=== PATIENT | male | born 2005 | race Caucasian/White ===

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

== ENCOUNTER 2025-05-13 09:36 | Outpatient (CLI) | payer BC, SELFPAY ==
--- OUTSIDE RECORDS SUMMARY | 2025-05-13 09:41 | XMS_ITS | Clinical Summary ---
Author Organization Healthcare Address [address] 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 14 tablet 02/10/2022 Active Social History Tobacco Use Types Packs/Day Years Used Date Smoking Tobacco: Passive Smo ke Exposure - Never Smoker Sex and Gender Information Value Date Recorded Sex Assigned at Not on file Legal Sex Male 6:08 PM EDT Gender Identity Not on file Sexual Orientation Not on file Last Filed Vital Signs Vital Sign Reading Time Taken Comments Blood Pressure 137/63 02/10/2022 8:00 AM EDT Pulse 95 02/10/2022 6:24 AM EDT Temperature 37.4 C (99.4 F) 02/10/2022 6:24 AM EDT Respiratory Rate 20 02/10/2022 6:24 AM EDT Oxygen Saturation 97% 02/10/2022 8:00 AM EDT Inhaled Oxygen Concentration - - Weight 94.8 kg (208 lb 15.9 oz) 07/18/2016 8:34 AM EST Height 162.6 cm (5' 4 ) 07/18/2016 8:34 AM EST Body Mass Index 35.87 07/18/2016 8:34 AM EST Plan of Treatment Health Maintenance Due Date Last Done Comments [facility]-Depression Screening 2004 [facility]-Infant/Child/Adol SDOH Screenings 2004 HPV Vaccines (1 - Male 3-dose series) 01/27/2019 [facility]- SDOH Screenings 01/27/2022 [facility]-Adult SDOH Screenings 01/27/2022 [id number] Vaccine (1 - season) 2025 [facility]-Influenza Vaccine (#1) 2025 05/09/2020 [facility]-DTaP,Tdap,and Td Vaccines (2 - Td or Tdap) 01/15/2026 01/16/2016 [facility]-Zoster Vaccines (1 of 2) 01/27/2054 01/16/2016, 03/05/2005 [facility]-HIB Vaccines Completed 03/05/2005, , 2004 [facility]-Hepatitis B Vaccines Completed 005, 2004, 2004 [facility]-IPV Vaccines Completed 03/09/2010, 06/2005, 2004, Additional history exists [facility]-Varicella Vaccines Completed 01/16/2016, 2004 [facility]-Hepatitis A Vaccines Completed 10/07/2018, 02/25 [facility]-Pneumococcal Vaccine: Pediatrics (0 to 5 Years) and At-Risk Patients (6 to 49 Years) Aged Out No longer eligible based on patient's age to complete this topic [facility]-Rotavirus Vaccines Aged Out No lo nger eligible based on patient's age to complete this topic Insurance [employer] Care Teams Cuff Setter Relationship Specialty Start Date End Date Pcp, [place] [address] PCP - General Family Medicine 6/18/22
--- NOTE | 2025-05-13 09:47 | XR_ITS ---
FINAL REPORT CLINICAL HISTORY: LEFT SHOULDER PAIN FINDINGS: LEFT SHOULDER Three views were obtained. There is no fracture or dislocation. The joint spaces appear normal. No soft tissue abnormality is identified. IMPRESSION: No acute process. Reviewed, Interpreted and Dictated by Nataly Becerril MD Transcribed by Alexia Mosley Authenticated and [facility]
== END 2025-05-13 23:59 | disposition home or self-care (01) ==
LOC: RAD 09:39
PROVIDERS: PCP Nurse Practitioner; Visit Provider Nurse Practitioner
DX: M25.512 Pain in left shoulder (principal)
CPT/HCPCS: 73030

== ENCOUNTER 2025-05-24 08:00 | Outpatient (RCR) | payer BC, SELFPAY | END 2025-05-24 23:59 | disposition home or self-care (01) | LOC: OT 08:00 | PROVIDERS: Visit Provider Nurse Practitioner | DX: M25.512 Pain in left shoulder (principal) | CPT/HCPCS: 97014; 97110; 97140; 97166; G0283 ==

== ENCOUNTER 2025-06-17 08:00 | Outpatient (RCR) | payer BC, SELFPAY | END 2025-06-17 23:59 | disposition home or self-care (01) | LOC: OT 08:00 | PROVIDERS: Visit Provider Nurse Practitioner | DX: M25.512 Pain in left shoulder (principal) | CPT/HCPCS: 97014; 97032; 97110; 97140; 97530; G0283 ==